=== PATIENT | male | born 1975 | race Caucasian/White ===

== ENCOUNTER 2017-04-22 00:50 | Emergency (ER) | payer MEDICARE, MEDICAID ==
[2017-04-22 01:27] LABS: BASOPHILS 0.5 % (0-2); EOSINOPHILS 1.4 % (0-7); HEMATOCRIT 38.1 % (42.0-54.0); IMMATURE GRANULOCYTES 0.2 % (0-5); LYMPHOCYTES 26.8 % (15-50); MCH 29.6 pg (26.0-34.0); MCHC 34.1 g/dL (31.0-37.0); MCV 86.8 fL (80.0-100.0); MEAN PLATELET VOLUME 10.4 fL (7.4-10.4); MONOCYTES 11.3 % (2-11); NEUTROPHILS 59.8 % (40-80); PLATELET COUNT 157 10x3/uL (130-400); RBC 4.39 10x6/uL (4.20-6.10); RDW 12.8 % (11.5-14.5); WBC 4.3 10x3/uL (4.8-10.8)
[2017-04-22 01:46] LABS: ALBUMIN 3.6 g/dL (3.4-5.0); ALKALINE PHOSPHATASE 45 U/L (46-116); ALT (SGPT) 37 U/L (10-68); BILIRUBIN - TOTAL 0.68 mg/dL (0.2-1.3); CALC OSMOLALITY 271 mosm/kg (275-300); CALCIUM 8.3 mg/dL (8.5-10.1); CARBON DIOXIDE 30.7 mmol/L (21.0-32.0); CHLORIDE - SERUM 100 mmol/L (98-107); GLUCOSE 116 mg/dL (74-106); POTASSIUM - SERUM 3.6 mmol/L (3.5-5.1); PROTEIN - SERUM 6.9 g/dL (6.4-8.2); SODIUM 136 mmol/L (136-145); UREA NITROGEN 11 mg/dL (7-18); eGFR NON AFRICAN AMERICAN 87 mL/min (90-120)
[2017-04-22 01:54] LABS: AMYLASE - SERUM 35 U/L (25-115); LIPASE 271 U/L (73-393); THYROID STIMULATING HORMONE 2.36 uIU/mL (0.36-3.74)
[2017-04-22 02:11] LABS: UDS - AMPHET NEGATIVE QUAL (NEGATIVE); UDS - BARB NEGATIVE QUAL (NEGATIVE); UDS - BENZO NEGATIVE QUAL (NEGATIVE); UDS - COCAINE NEGATIVE QUAL (NEGATIVE); UDS - OPIATE NEGATIVE QUAL (NEGATIVE); UDS - PCP NEGATIVE QUAL (NEGATIVE); UDS - THC NEGATIVE QUAL (NEGATIVE)
== END 2017-04-22 05:19 | disposition home or self-care (01) ==
LOC: D.ER 00:50
PROVIDERS: Family Medicine
DX: Z86.59 Personal history of other mental and behavioral disorders (principal); F22 Delusional disorders